=== PATIENT | female | born 1985 | race African-American/Black ===

== ENCOUNTER 2023-02-06 07:02 | Emergency (ER) | payer OTHER ==
[~2023-02-06] VITALS: Ht 157.5 cm; Wt 59.0 kg
[2023-02-06 07:04] VITALS: BP 118/80; PULSE 90; RESP 20; TEMP 98.5; O2SAT 100
[2023-02-06] MEDS ORDERED: ONDANSETRON HCL 4MG/2ML INJ IV STA ×2 (07:08→09:37)
[2023-02-06] MEDS ORDERED: MECLIZINE 25MG TABLET PO ONE ×2 (07:15→09:45)
[2023-02-06] MEDS ORDERED: SODIUM CHLORIDE 0.9% 1,000 ML IV ONE ×2 (07:15→09:45)
[2023-02-06 08:24] LABS: BASOPHILS % 0.3 % (0.0-2.0); EOSINOPHILS % 0.3 % (0.0-5.0); HEMATOCRIT. 38.2 % (36.0-48.0); HEMOGLOBIN. 12.6 g/dL (12.0-16.0); LYMPHOCYTES % 15.4 % (20.0-50.0); MEAN CORPUSCULAR HEMOGLOBIN 27.3 pg (28.0-32.0); MEAN CORPUSCULAR VOLUME 82.8 fL (81.0-99.0); MEAN PLATELET VOLUME 9.2 fl (7.4-10.4); MONOCYTES % 5.3 % (2.0-8.0); NEUTROPHILS % 78.7 % (40.0-76.0); PLATELET 274 x1000/uL (130-400); RED BLOOD CELL COUNT 4.62 mill/uL (4.2-5.4); RED CELL DISTRIBUTION WIDTH 12.5 % (11.6-14.6)
[2023-02-06 08:34] LABS: CHLORIDE 109 mEq/L (98-107)
[2023-02-06 08:41] LABS: ETHANOL BLOOD < 10 mg/dL (-10)
[2023-02-06 08:49] LABS: *AMPHETAMINES SCREEN URINE NEGATIVE (NEGATIVE); *BARBITURATES SCREEN URINE NEGATIVE (NEGATIVE); *BENZODIAZEPINES SCREEN URINE NEGATIVE (NEGATIVE); *COCAINE SCREEN URINE NEGATIVE (NEGATIVE); CANNABINOID URINE SCREEN NEGATIVE (NEGATIVE); METHADONE URINE SCREEN NEGATIVE (NEGATIVE); OPIATES URINE SCREEN NEGATIVE (NEGATIVE); PHENCYCLIDINE URINE SCREEN NEGATIVE (NEGATIVE)
[2023-02-06 09:01] LABS: CLARITY URINE SL HAZY (CLEAR); COLOR URINE YELLOW (YELLOW); KETONES URINE NEGATIVE (NEGATIVE); PH URINE 5.5 (4.5-8.0); PROTEIN URINE NEGATIVE (NEGATIVE); SPECIFIC GRAVITY URINE 1.015 (1.005-1.030)
[2023-02-06 09:02] LABS: LEUKOCYTE ESTERASE URINE NEGATIVE (NEGATIVE); NITRITE URINE POSITIVE (NEGATIVE); OCCULT BLOOD URINE TRACE (NEGATIVE); UROBILINOGEN URINE 0.2 E.U./dL (0.2-1.0)
[2023-02-06] MEDS ORDERED: CEFTRIAXONE 1GM PREMIX 50 ML IV ONE (09:45)
[2023-02-06] MEDS ORDERED: CEPH500T MT (10:27)
[2023-02-06] MEDS ORDERED: MECL-159 MT (10:27)
== END 2023-02-06 10:50 | disposition home or self-care (01) ==
LOC: ER 07:02
DX: N39.0 Urinary tract infection, site not specified (principal); R42 Dizziness and giddiness
CPT/HCPCS: 80053; 80305; 81003; 81025; 80320; 85025; 36415; 96361; 96365; 96375; 96376; 99284; J8597; J0696; J2405; J7030; Z7610; G0480